=== PATIENT | female | born 1985 | race Two or more races ===

== ENCOUNTER 2018-04-20 10:55 | Outpatient (CLI) | payer OTHER | END 2018-04-20 12:30 | disposition home or self-care (01) | LOC: RX STUDY 10:55 | DX: D25.0 Submucous leiomyoma of uterus (principal); N80.0 Endometriosis of uterus ==

== ENCOUNTER → 2018-10-03 | Day surgery (SDC) | payer OTHER ==
[~2018-10-03] VITALS: Ht 157.5 cm; Wt 58.1 kg
[~2018-10-03] MED LIST: KETO10TA2 PO
== END | disposition home or self-care (01) ==
LOC: ER 01:39 → CIR.AMB 13:11
DX: O02.1 Missed abortion (principal); Z3A.09 9 weeks gestation of pregnancy

== ENCOUNTER 2018-10-05 01:00 | Emergency (ER) | payer OTHER ==
[~2018-10-05] VITALS: Ht 157.5 cm; Wt 59.0 kg
[2018-10-05] MEDS ORDERED: KETO10TA2 PO (03:53)
== END 2018-10-05 03:59 | disposition home or self-care (01) ==
LOC: ER 01:00
DX: R10.2 Pelvic and perineal pain (principal)

== ENCOUNTER 2019-01-19 12:40 | Outpatient (CLI) | payer OTHER | END 2019-01-19 14:57 | disposition home or self-care (01) | LOC: RX STUDY 12:40 | DX: N80.8 Other endometriosis (principal) | CPT/HCPCS: 72195 ==

== ENCOUNTER 2020-05-29 09:54 | Outpatient (CLI) | payer OTHER | END 2020-05-29 10:08 | disposition home or self-care (01) | LOC: RX STUDY 09:54 | DX: H32 Chorioretinal disorders in diseases classified elsewhere (principal) ==

== ENCOUNTER → 2023-04-12 | Outpatient (CLI) | payer OTHER | END | disposition home or self-care (01) | LOC: RX STUDY 09:25 | PROVIDERS: ATTEND Obstetrics & Gynecology | DX: D25.2 Subserosal leiomyoma of uterus (principal); N80.209 Endometriosis of unspecified fallopian tube, unspecified depth ==

== ENCOUNTER 2024-11-24 07:58 | Outpatient (CLI) | payer OTHER | END 2024-11-24 08:17 | disposition home or self-care (01) | LOC: MRI 07:58 | DX: D25.0 Submucous leiomyoma of uterus (principal); N80.00 Endometriosis of the uterus, unspecified | CPT/HCPCS: 72196 ==